=== PATIENT | female | born 1950 | race Caucasian/White ===

== ENCOUNTER 2022-04-20 14:12 | Outpatient (CLI) | payer MEDICARE, SELFPAY ==
--- NOTE | 2022-04-20 14:30 | CRLHL7_ITS ---
For Patients: As a result of the Century Cures Act, medical imaging exams and procedure reports are released immediately into your electronic medical record. You may view this report before your referring provider. If you have questions, please contact your health care provider. DXA BONE MINERAL DENSITY STUDY Reason for exam: History of breast cancer; aromatase inhibitors. Current height (in): 64. Weight (lb): 137. Menopause age: 54. Ethnicity: White. 1. Have you had a previous hip or vertebral fracture? No. 2. Have you had any fractures during your adult life which did not result from significant trauma (e.g., auto accident)? No. 3. Did either of your parents have a hip fracture? No. 4. Do you smoke? No. 5. Have you ever taken Glucocorticoids? No. 6. Do you have rheumatoid arthritis? No. 7. Do you have secondary osteoporosis? No. 8. Do you drink 3 or more alcoholic drinks per day? No. 9. Are you being treated for osteoporosis? No. 10. Have you ever taken any of the following medications: Actonel, Evista, Fosamax, Miacalcin, Reclast, Boniva, Forteo, HRT (i.e., estrogen/hormone therapy), Protelos, Prolia, Vitamin D, Calcium, other ??? please specify. ANSWER: Yes, vitamin D and calcium. 11. Do you have any of the following medical conditions: Anorexia or bulimia, asthma or emphysema, end stage renal disease, hyperparathyroidism, any seizure disorders, cancer, inflammatory bowel diseases, hysterectomy, other ??? please specify. ANSWER: Yes, cancer. 12. What was your maximum height (inches)? 66. 13. Do you perform weight bearing exercise regularly? No. 14. Do you regularly consume dairy products? Yes. 15. Do you drink caffeinated beverages? Yes. If female: 16. At what age did your period start? 12. 17. Are you premenopausal? No. 18. How many full-term pregnancies have you had? 3. 19. Have you ever missed your period for more than 6 months in a row (not including or menopause)? No. TECHNIQUE: Bone mineral density study was performed using the [employer]. FINDINGS: The results of the study expressed as bone mineral density (BMD) are as follows: Lumbar spine L1 to L4: BMD: 0.945 g/cm2. T-score: -0.9. Z-score: 1.3. Neck Left: BMD: 0.594 g/cm2. T-score: -2.3. Z-score: -0.3. Total Left: BMD: 0.808 g/cm2. T-score: -1.1. Z-score: 0.6. Radius Left 33%: BMD: 0.644 g/cm2. T-score: -0.8. Z-score: 1.5. IMPRESSION: 1. Osteopenia. 2. Scoliosis. FRAX 10-year Fracture Risk Major Osteoporotic Fracture: 14% Hip Fracture: 3.5% Reported Risk Factors: [place] () Neck BMD=0.594, BMI= 23.5 Sandy Henriquez M.D. Diagnostic/Breast Radiologist [email or web address] goode/Dictated by: Sandy Henriquez MD @ 04/20/2022 3:24:00 PM (Electronically Signed)
== END 2022-04-20 14:13 | disposition home or self-care (01) ==
LOC: RAD 14:13
PROVIDERS: PCP Family Medicine; Visit Provider Physician Assistant
DX: Z78.0 Asymptomatic menopausal state (principal); M85.89 Other specified disorders of bone density and structure, multiple sites; Z79.811 Long term (current) use of aromatase inhibitors
CPT/HCPCS: 77080

== ENCOUNTER 2022-08-23 14:00 | Outpatient (RCR) | payer MEDICARE, SELFPAY ==
--- NOTE | 2022-04-05 13:16 | ONC.NURNOTE ---
Accompanied patient to her oncology consultation. Patient aware that once we have the second oncotype dx score, I will review with Dr. Ortega and call her with results. Also discussed with Nanci the importance of completing her DEXA within the next few weeks as we will want those results prior to ordering endocrine therapy. Radiology will call patient to schedule. Patient was given a dental clearance form and encouraged to schedule an appointment at her earliest convenience. Patient informed that we will not schedule follow up here in oncology until we have a finalized treatment plan. If chemotherapy is not needed we will see her a few months after starting endocrine therapy. Patient was given my contact information and was encouraged to call with any questions or concerns.
--- NOTE | 2022-08-30 10:29 | URNOTE ---
Request received for authorization for Zoledronic Acid (J3489). Prior authorization is approved per [facility] (Ref# [id number]) as patient carries [employer] medicare, approval is for Zoledronic Acid from 09/19/2022 to 03/18/2023.
--- NOTE | 2022-08-31 14:06 | ONC.NURNOTE ---
Left message for patient stating that insurance will cover her infusion, but need dental clearance sent prior to scheduling.
== END 2022-10-02 23:59 | disposition home or self-care (01) ==
LOC: CCIC 14:00
PROVIDERS: PCP Physician Assistant Medical; Visit Provider Internal Medicine Hematology & Oncology
DX: C50.912 Malignant neoplasm of unspecified site of left female breast (principal); Z17.1 Estrogen receptor negative status [ER-]; Z79.811 Long term (current) use of aromatase inhibitors; Z85.3 Personal history of malignant neoplasm of breast
CPT/HCPCS: 99202; 99205; 99212; 99214

== ENCOUNTER 2022-09-17 14:00 | Outpatient (RCR) | payer MEDICARE, SELFPAY | END 2022-10-25 10:37 | disposition home or self-care (01) | PROVIDERS: PCP Family Medicine; Visit Provider Family Medicine | DX: M17.0 Bilateral primary osteoarthritis of knee (principal); M25.561 Pain in right knee; M25.562 Pain in left knee; Z51.89 Encounter for other specified aftercare | CPT/HCPCS: 97110; 97161; 97530 ==

== ENCOUNTER 2022-10-02 09:00 | Outpatient (RCR) | payer MEDICARE, SELFPAY ==
--- NOTE | 2022-04-12 13:32 | ONC.NURNOTE ---
Addendum entered by Trice Medina RN 04/26/22 17:18: Reviewed Dexa scan results with Reyna Kennedy PA-C and Mally Quintero EXPANDED FUNCTION DENTAL ASSISTANT; ok to proceed with Anastrazole 2 weeks after last Rad Tx appt, per Dr. Ortega's recommendation. Prescription sent to pharmacy on file. Reviewed with pt; last Rad Tx appt is tomorrow 04/27. Plan to start Anastrazole 05/11. Pt sees her dentist 05/01 and has Dental Clearance form to bring to appt. BNN to call ~ 1 mo after starting Anastrazole; reviewed pt to call with any questions/concerns about side effects or other issues. She is agreeable to this plan. Original Note: Reviewed with Dr. Ortega for Anastrazole to be ordered for pt, but to review DEXA results with Med Onc prior to pt starting Anastrazole. Reviewed this plan with pt; pharmacy confirmed.
== END 2023-01-30 23:59 | disposition home or self-care (01) ==
PROVIDERS: PCP Family Medicine; Visit Provider Physician Assistant
DX: I89.0 Lymphedema, not elsewhere classified (principal); Z98.890 Other specified postprocedural states; Z51.89 Encounter for other specified aftercare
CPT/HCPCS: 97140; 97165; 97535

== ENCOUNTER 2022-11-02 09:42 | Outpatient (CLI) | payer MEDICARE, SELFPAY ==
--- NOTE | 2022-11-02 10:00 | CRLHL7_ITS ---
For Patients: As a result of the Century Cures Act, medical imaging exams and procedure reports are released immediately into your electronic medical record. You may view this report before your referring provider. If you have questions, please contact your health care provider. Indication: Cough Technique: Noncontrast CT chest. Please note that all CT scans at this facility use dose modulation, iterative reconstruction, and/or weight-based dosing when appropriate to reduce radiation dose to as low as reasonably achievable. Comparison: CT PET 10/26/2008, CT chest 10/17/2007 Findings: Small subpleural nodular densities are present within the anterior left lung compatible with post treatment change. Left lower lobe pulmonary nodule is present measuring 4 millimeters, 3/57. Additional left lower lobe pulmonary nodule located posteriorly measuring 5.5 millimeters, 42. This nodule has increased in size from the prior study. Tiny nodular density in the superior segment of the left lower lobe is noted measuring 2 millimeters, 29. Small nodular densities in the medial left upper lobe are probably similar. Stable subpleural scarring at the posterior aspect of the right upper lobe. Less than 3 millimeter nodule in the periphery of the right upper lobe, 18. 6 millimeter nodule right lower lobe, new from prior, . No pleural effusion. Postop changes left breast lumpectomy and left axillary lymph node dissection. Remote postop changes to the right breast and right axilla. No enlarged mediastinal or hilar lymph nodes. No enlarged axillary lymph nodes. Hiatal hernia is present measuring 5.4 cm. Mild atherosclerotic changes. No fracture. No infiltrate, edema, effusion or pneumothorax. Impression: Small bilateral pulmonary nodules. Some of the nodules are chronic and unchanged. However, there is a new nodule within the right lower lobe measuring 6 millimeters and there is a larger nodule in the left lower lobe measuring 5.5 millimeters. No intrathoracic adenopathy. Postop changes to both breasts and axilla. No infiltrate, CHF or fibrosis. Please note that all CT scans at this facility use dose modulation, iterative reconstruction, and/or weight-based dosing when appropriate to reduce radiation dose to as low as reasonably achievable. Dictated by Ivna Olivas MD @ 11/02/2022 12:25:01 PM (Electronically Signed)
== END 2022-11-02 09:43 | disposition home or self-care (01) ==
LOC: CT 09:44
PROVIDERS: PCP Family Medicine; Visit Provider Physician Assistant
DX: R05.9 Cough, unspecified (principal); R91.8 Other nonspecific abnormal finding of lung field; R92.8 Other abnormal and inconclusive findings on diagnostic imaging of breast
CPT/HCPCS: 71250

== ENCOUNTER 2023-04-18 13:00 | Outpatient (RCR) | payer MEDICARE, SELFPAY ==
--- NOTE | 2022-10-19 15:21 | ONC.NURNOTE ---
Called pt to f/u recent Dental Clearance and check in about proceeding with Zometa as ordered q 6 mo. Pt discusses she has concerns about risk of osteonecrosis of jaw vs benefit of Zometa. Offered to schedule pt to see provider sooner than planned 6 mo f/u due in Feb 05. She prefers to wait to discuss more at this appt. When asked how she is feeling otherwise, she also notes bone aches and isn't sure if its more osteoarthritis or anastrozole-related myalgias. Library Clerk discussed possibility of trying other AI for an improved side effect profile. Pt reinforces she is managing adequately and would like to discuss at Jan appt.
== END 2023-08-06 23:59 | disposition home or self-care (01) ==
LOC: CCIC 13:00
PROVIDERS: PCP Family Medicine; Visit Provider Internal Medicine Hematology & Oncology
DX: C50.912 Malignant neoplasm of unspecified site of left female breast (principal); Z17.0 Estrogen receptor positive status [ER+]; R91.8 Other nonspecific abnormal finding of lung field; M85.80 Other specified disorders of bone density and structure, unspecified site; Z85.3 Personal history of malignant neoplasm of breast; Z79.811 Long term (current) use of aromatase inhibitors
CPT/HCPCS: 99212; 99214; 99215; G0463

== ENCOUNTER 2023-05-09 09:23 | Outpatient (CLI) | payer MEDICARE, SELFPAY ==
--- NOTE | 2023-05-09 10:00 | CT_ITS ---
Patient: PAYAL BURGOS Facility:?[facility] Patient ID:?[id number] Site Patient ID:?[id number]. Site :?[id number] Study:?CT-Chest W/ ISOVUE 370-05/09/2023 10:26:55 AM Ordering Physician:REYNA Final Report: Indication: MONITOR NEW AND CHANGING LUNG NODULES Technique: CT Chest W/ ISOVUE 370 Please note that all CT scans at this facility use dose modulation, iterative reconstruction, and/or weight-based dosing when appropriate to reduce radiation dose to as low as reasonably achievable. Comparison: 11/02/2022 Findings: Stable 5 millimeter nodule left lower lobe, 38. Stable 4 millimeter nodule left lower lobe, 354. Stable tiny subpleural density right upper lobe, 316 measuring less than 3 millimeters. Stable 6 millimeter nodule right lower lobe, 56. Decreased size of the lumpectomy cavity within the left lower lobe. Heterogeneous thyroid gland again noted. No adenopathy. No pleural or pericardial effusion. Hiatal hernia. Degenerative changes. No fracture. Impression: Stable bilateral pulmonary nodules. Please note that all CT scans at this facility use dose modulation, iterative reconstruction, and/or weight-based dosing when appropriate to reduce radiation dose to as low as reasonably achievable. Dictated by Ivan Olivas MD @ 05/09/2023 12:33:46 PM Signed by:?Ivan Olivas MD @05/09/2023 12:33:46 PM (Electronic Signature)
[2023-05-09 10:01] LABS: Creatinine* 0.9 mg/dL (0.5-1.5); Estimated Glomerular Filt Rate 68 ml/min
--- NOTE | 2023-05-20 15:30 | ONC.NURNOTE ---
Ct scan reviewed by Reyna Kennedy PA-C, noted lung nodules are stable. Rabbler called pt with results.
== END 2023-05-09 09:24 | disposition home or self-care (01) ==
LOC: CT 09:25
PROVIDERS: PCP Family Medicine; Visit Provider Physician Assistant
DX: R91.8 Other nonspecific abnormal finding of lung field (principal)
CPT/HCPCS: 36415; 71260; 82565; Q9967

== ENCOUNTER 2023-08-08 12:30 | Outpatient (RCR) | payer MEDICARE, SELFPAY | END 2024-02-04 23:59 | disposition home or self-care (01) | LOC: CCIC 12:30 | PROVIDERS: PCP Family Medicine; Visit Provider Internal Medicine Hematology & Oncology | DX: C50.912 Malignant neoplasm of unspecified site of left female breast (principal); Z17.0 Estrogen receptor positive status [ER+]; R91.8 Other nonspecific abnormal finding of lung field; M85.80 Other specified disorders of bone density and structure, unspecified site; Z85.3 Personal history of malignant neoplasm of breast; Z79.811 Long term (current) use of aromatase inhibitors | CPT/HCPCS: 99214; G0463 ==

== ENCOUNTER 2024-02-05 06:49 | Day surgery (SDC) | payer MEDICARE, SELFPAY ==
[2024-02-05] VITALS (21 sets, daily range): BP systolic 89–146; BP diastolic 62–92; PULSE 61–82; RESP 14–16; TEMP 36.2–36.8; O2SAT 95–100; BMI 24.2
--- OUTSIDE RECORDS SUMMARY | 2024-02-05 06:53 | XMS_ITS | Clinical Summary ---
Author Organization [facility] Address [address] [place] [address] Care Team Providers Care Hand Shoe Cutter Name Role Phone Unavailable Primary Care Provider Unavailabl e Source Comments Patient records contain information from all sites at [facility]. For routine questions regarding patient records, call [phone] during business hours, M-F 8:00 AM - 5:00 PM Central Time. Record requests for emergency care only can be directed to [phone] at any time.[facility] Allergies No known active allergies Medications acetaminophen (TYLENOL) 500 mg tablet Take 1,000 mg by mouth every 6 (six) hours as needed. 03/07/2022 Active atenoloL (TENORMIN) 50 mg tablet Take 50 mg by mouth daily. Active ibuprofen (ADVIL,MOTRIN) 400 mg tablet Take 400 mg by mouth every 8 (eight) hours as needed. 03/07/2022 Active levothyroxine (SYNTHROID, LEVOTHROID) 75 mcg tablet Take 75 mcg by mouth daily. 02/27/2022 Active Active Problems Problem Noted Date Diagnosed Date Malignant Neoplasm Of Breast Upper Outer Quadrant Female Right 03/16/2022 Malignant Neoplasm Of Overla pping Sites Of Left Female Breast 01/25/2022 Cancer Staging:Pathologic stage from 03/07/2022:Stage IA(pT1c, pN1a(sn), cM0, G2, ER+, [place]+, HER2-) - Unsigned Family History Medical History Relation Name Comments Colon cancer Brother Prostate cancer Brother Ovarian cancer Mother Relation Name Status Comments Brother Mother Social History Tobacco Use Types Packs/Day Years Used Date Smoking Tobacco: Never Passive Smoke Exposure: Past Smokeless Tobacco: Never Tobacco Cessation:Counseling Given: Not Answered Alcohol Use Standard Drinks/Week Comments Not Currently 2 (1 standard drink = 0.6 oz pur e alcohol) rare Nutrition Answer Date Recorded Nutrition: EVOO Fat Source Unknown 03/14 Nutrition: Servings of Fruits/Vegetables per Day Not on file 03/14/2022 Dental Answer Date Recorded Dental: Regular Dentist Unknown 03/14/19 23 Comments Unknown Sex and Gender Information Value Date Recorded Sex Assigned at Not on file Legal Sex Female 8:20 AM LIFE SCIENCES DIRECTOR Gender Identity Not on file Sexual Orientation Not on file Last Filed Vital Signs Vital Sign Reading Time Taken Comments Blood Pressure 189/97 04/24/2022 2:40 PM LIFE SCIENCES DIRECTOR Pulse 66 04/24/2022 2:40 PM LIFE SCIENCES DIRECTOR Temperature 36.3 C (97.4 F) 04/24/2022 2:40 PM LIFE SCIENCES DIRECTOR Respiratory Rate - - Oxygen Saturation - - Inhaled Oxygen Concentration - - Weight 61.5 kg (135 lb 9.3 oz) 04/24/2022 2:40 P M LIFE SCIENCES DIRECTOR Height - - Body Mass Index - - Plan of Treatment Health Maintenance Due Date Last Done Comments Bone Density Scan (Osteoporosis Screen) 1950 CT Colonography 1950 Colonoscopy 1950 Hepatitis C Screening 1950 Zoster Vaccines (1 of 2) 12/01/2010 10/06/2010 Depression Screening (Annual PHQ-2) 02/25/2023 Fall Risk Screen (Annual) 02/25/2023 COVID-19 Vaccine ( season) 2023 02/12/2023, 01/31/2021, 05/27/2020, Additional history exists Influenza Vaccine (#1) 2023 , 12/27/2021, 12/09/2020, Additional history exists Mammogram 01/25/2024 01/24/2023, 12/28, 03/07/2022, Additional history exists Thyroid Stimulating Hormone (TSH) test for thyroid function 08/14/2024 08/15/2023, 07/25/2022, 09/07/2021, Additional history exists Fasting Glucose for Diabetes Screening 08/14/2026 08/15/2023, 07/25/2022, 09/07/2021, Additional history exists Cologuard 08/27/2026 08/28/2023 Colorectal Cancer Surveillance 08/27/2026 DTaP,Tdap,and Td Vaccines (3 - Td or Tdap) 07/04/2030 07/04/2020, 07/22/2009, 11/21/1998 Pneumococcal vaccine (65+ years) Completed 11/07/2015, 10/26/2014 IPV Vaccines Aged Out No longer eligi ble based on patient's age to complete this topic Procedures Procedure Name Priority Date/Time Associated Diagnosis Comments OUTSIDE MG MAMMOGRAM Routine 03/07/2022 10:50 AM LIFE SCIENCES DIRECTOR from Last 3 Months or Most Recently Relevant to Health Maintenance Results * XR MAMMO POST LOCALIZATION LT-Outside Mammogram (03/07/2022 10:50 AM LIFE SCIENCES DIRECTOR) Narrative [facility] - 03/20/2022 8:11 AM LIFE SCIENCES DIRECTOR This order has been created and auto-finalized to support the import of outside images. If available, original interpretation can be found on the Media Tab in Chart Review, in Document Viewer, or as an image in QREADS. If a re-interpretation or overread is required please follow defined workflow. us Provider Not In System IMG BI PROCEDURES Final R esult [facility] NA from Last 3 Months or Most Recently Relevant to Health Maintenance Insurance [facility] [place] [address]
--- OUTSIDE RECORDS SUMMARY | 2024-02-05 06:53 | XMS_ITS | Referral Summary ---
Author Organization [facility] Address [address] [place] [address] Care Team Providers Care Livery Car Driver Name Role Phone Unavailable Primary Care Provider Unavailabl e Source Comments Patient records contain information from all sites at [facility]. For routine questions regarding patient records, call [phone] during business hours, M-F 8:00 AM - 5:00 PM Central Time. Record requests for emergency care only can be directed to [phone] at any time.[facility] Allergies No known active allergies Medications acetaminophen [...] from 03/07/2022:Stage IA(pT1c, pN1a(sn), cM0, G2, ER+, [place]+, HER2-) - Unsigned Social History Tobacco Use Types Packs/Day Years [...] on file Legal Sex Female 8:20 AM PROGRAMMER DEVELOPER Gender Identity Not on file Sexual Orientation Not on file Last Filed Vital Signs Vital Sign Reading Time Taken Comments Blood Pressure 189/97 04/24/2022 2:40 PM PROGRAMMER DEVELOPER Pulse 66 04/24/2022 2:40 PM PROGRAMMER DEVELOPER Temperature 36.3 C (97.4 F) 04/24/2022 2:40 PM PROGRAMMER DEVELOPER Respiratory Rate - - Oxygen Saturation - - Inhaled Oxygen Concentration - - Weight 61.5 kg (135 lb 9.3 oz) 04/24/2022 2:40 P M PROGRAMMER DEVELOPER Height - - Body Mass Index - - Plan of Treatment Not on file Procedures Procedure Name Priority Date/Time Associated Diagnosis Comments OUTSIDE MG MAMMOGRAM Routine 03/07/2022 10:50 AM PROGRAMMER DEVELOPER from Last 3 Months or Most Recently Relevant to Health Maintenance Results * XR MAMMO POST LOCALIZATION LT-Outside Mammogram (03/07/2022 10:50 AM PROGRAMMER DEVELOPER) Narrative [facility] - 03/20/2022 8:11 AM PROGRAMMER DEVELOPER This order has been created and auto-finalized [...] Most Recently Relevant to Health Maintenance Insurance [facility]
--- OUTSIDE RECORDS SUMMARY | 2024-02-05 06:54 | XMS_ITS ---
Author Organization [facility] Address [address] [place] [address] Care Team Providers Care Film Color Tester Name Role Phone Unavailable Unavailable Unavailable Surgery Details Not on file Complications Check Surgery Details section. Procedure Estimated Blood Loss Check Surgery Details section. Procedure Findings Check Surgery Details section. Procedure Specimens Taken Check Surgery Details section.
--- OUTSIDE RECORDS SUMMARY | 2024-02-05 06:54 | XMS_ITS | Clinical Summary ---
Author Organization [employer] [facility] Address [place], [place] [address] Care Team Providers Care Master Baker Name Role Phone Gretchen Farias MD Primary Care Provider Juliana Mcknight MD Unavailable Unavailable Allergies No known active allergies Medications CALCIUM + D ORAL once daily Active MULTIVITAMIN TAB take 1 tablet by oral route once daily with food Active acetaminophen (TYLENOL EXTRA STRGTH) 500 mg tablet Take 2 Tablets (1,000 mg) by mouth every 6 hours if needed for Pain (For mild pain 1st choice. May take either Tylenol tablet or liquid, if both ordered.). Max acetaminophen dose: 4000mg in 24 hrs. 3 Active ibuprofen (ADVIL; MOTRIN) 400 mg tablet Take 1 Tablet (400 mg) by mouth every 8 hours if needed for Pain (For mild pain 2nd choice). 3 Active anastrozole (ARIMIDEX) 1 mg tablet TAKE 1 TABLET BY MOUTH DAILY. START DIRECTED AFTER RADIATION AND BONE SCAN RESULTS. 3 Active levothyroxine (SYNTHROID) 75 mcg tabletIndicatio ns:Hypothyroidi sm, unspecified type Take 1 Tablet (75 mcg) by mouth once daily. 100 Tablet 3 4 Active losartan (COZAAR) 50 mg tabletIndicatio ns:HTN (hypertension) Take 1 Tablet (50 mg) by mouth once daily. 100 Tablet 3 4 Active Active Problems Problem Noted Date Diagnosed Date History of infiltrating ductal carcinoma of agapito st 07/25/2022 Overview (07/25/2022): Right. 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 2nd was less effective in 09/2018 and 3rd had not effect at all in 08/2019. Oct 2021: bilateral knee cortisone injections, Dr. Dinero July 2022: repeat bilateral knee cortisone injections, Dr. Dinero Osteopenia 11/02/2014 Overview (11/02/2014): Repeat 3-5 years done in 10/2014 Glaucoma suspect of both eyes 11/29/2011 Family history of colonic polyps 08/31/2008 Overview (11/11/2014): Colonoscopy 08/2008 normal repeat in 5 years Colonoscopy 10/2014 normal repeat in 5 years Hypothyroidism 07/28/2008 Unspecified essential hypertension 06/24/2007 Encounters Date Type Department Care Team Description 01/29/2024 2:30 PM INVESTIGATIVE RESEARCH SPECIALIST Office Visit [facility] [place] [address] [address] Delfina Bernal PA Follow Up (History of breast cancer ) 01/29/2024 1:20 PM INVESTIGATIVE RESEARCH SPECIALIST - 01/29/2024 11:59 PM INVESTIGATIVE RESEARCH SPECIALIST Hospital Encounter [facility] [place] [address] [place] [address] Encounter for screening mammogram for malignant neoplasm of breast; Personal history of malignant neoplasm of breast 01/29/2024 Travel 01/21/2024 12:15 PM INVESTIGATIVE RESEARCH SPECIALIST Nurse/Clinic Staff Only [place] [address] [place] [address] Immunization/Injectio n 01/21/2024 11:20 AM INVESTIGATIVE RESEARCH SPECIALIST Nurse/Clinic Staff Only [place] [address] [place] [address] Blood Pressure 01/21/[address] [place] [address] [place] [address] Alonzo Dinero MD 01/20/2024 Travel 01/20/2024 Orders Only [address] [place] [address] Alonzo Dinero MD 1 scan: (1-Ord) NFLD-EKG-01/17/24 01/17/2024 10:45 AM INVESTIGATIVE RESEARCH SPECIALIST Preop Visit [place] [address] [place] [address] Alonzo Dinero MD Preoperative Exam (RIGHT Total Knee Replacement DOS: 02/05/2024/[facility]/Dr Willard ) 01/16/2024 Travel from Last 3 Months Immunizations Name Administration Dates Next Due COVID-19 VACCINE SPIKEVAX (M ODERNA 50MCG/0.5ML) 12YO+ PFS 01/21/2024 COVID-19 vaccine (Moderna 10 0mcg/0.5mL) PF, MDV 01/31/2021,05/27/2020,04/29/2020 Influenza Virus, Unspecified 11/25/2012 Influenza, High-dose Inactivated 12/25/2018,10/26 Influenza, High-dose Quadriv alent Inactivated 12/05/2022,12/27/2021,12/28/2019 Influenza, IIV3 (Age >=3 years) 12/23/2009 Influenza, IIV4 11/03/2013 Influenza, Inactivated AIIV4 (Age 65+ Years) Preserv Free 12/09/2020 Influenza, Inactivated IIV3 (Age 65+ Years) Preserv Free 01/21/2024,01/02/2018,01/01/2017 Pneumococcal Poly,23-Valent (Pneumovax) 11/07/19 16 Pneumococcal conj 13-Valent (Prevnar 13) 015 Td (Age >=7 Years) 11/21/1998,10/03/1989 Tdap 07/04/2020,07/22/2009 Zoster (Zostavax-ZVL, live) 10/06/2010 Family History Medical History Relation Name Comments Cancer-colon Brother Hypertension Brother Other Brother hyperparathyroi d s/p surgical correction Arthritis Father RA Heart attack Father Hypertension Father Kidney failure Father Other Father hyperparathyroi dism s/p surgical correction Lymphoma Maternal Aunt Heart Disease Maternal Grandmother Fatal [place] at age 69 or 70 Cancer-ovarian Mother dx age 90 Hypertension Mother Lung cancer Other paternal first cousin; diagnosed late 50s; non smoker Arthritis Paternal Aunt RA Stroke Paternal Grandfather in 80's Arthritis Paternal Uncle RA Hypertension Sister Thyroid Disease Sister Cancer No Family History Cancer-breast No Family History Cancer-prostate No Family History Relation Name Status Comments Brother Alive Father Maternal Aunt Maternal Grandmother Mother Other Paternal Aunt Paternal Grandfather Paternal Uncle Sister Alive Social History Tobacco Use Types Packs/Day Years Used Date Smoking Tobacco: Never Smokeless Tobacco: Never Tobacco Cessation:Counseling Given: Yes Comments:lived with 2nd hand smoke Alcohol Use Standard Drinks/Week Comments Yes 2 (1 standard drink = 0.6 oz pur e alcohol) occasional - rare PHQ-2 Answer Date Recorded PHQ-2 TOTAL SCORE 0 08/15/2023 Social Connections Answer Date Recorded Do you often feel lonely or isolated from those around you? 0 08/15/2023 Financial Resource Strain Answer Date R ecorded Difficulty of Paying Living Expenses 3 08/15/2023 Difficulty of Paying Living Expenses Not on file 08/15/2023 Food Insecurity Answer Date Recorded Do you worry your food will run out before you are able to buy more? 1 08/15/2023 Transportation Needs Answer Date Record ed Does lack of transportation keep you from medica l appointments? 1 08/15/2023 Does lack of transportation keep you from work, meetings or getting things that you need? 1 08/15/2023 Housing Stability Answer Date Recorded What is your housing situation today? 1 08/15/2023 Comments No Sex and Gender Information Value Date Recorded Sex Assigned at Not on file Legal Sex Female 5:25 AM INVESTIGATIVE RESEARCH SPECIALIST Gender Identity Not on file Sexual Orientation Not on file Obstetrics History Para Term AB IAB SAB Ectopic Multiple Livin g Live Births 3 3 3 Date Outcome GA Total Labor Labor/2nd/3rd Weight Sex Type Anes PTL Mnady A1 A5 Name Clin Para Para Para Last Filed Vital Signs Vital Sign Reading Time Taken Comments Blood Pressure 168/98 01/29/2024 1:52 PM INVESTIGATIVE RESEARCH SPECIALIST Pulse 87 01/29/2024 1:52 PM INVESTIGATIVE RESEARCH SPECIALIST Temperature 36.3 C (97.3 F) 01/29/2024 1:52 PM INVESTIGATIVE RESEARCH SPECIALIST Respiratory Rate 18 01/29/2024 1:52 PM INVESTIGATIVE RESEARCH SPECIALIST Oxygen Saturation 100% 01/21/2024 11:32 AM INVESTIGATIVE RESEARCH SPECIALIST Inhaled Oxygen Concentration - - Weight 62.6 kg (138 lb) 01/29/2024 1:52 PM INVESTIGATIVE RESEARCH SPECIALIST Height 160 cm (5' 3) 01/29/2024 1:52 PM INVESTIGATIVE RESEARCH SPECIALIST Body Mass Index 24.45 01/29/2024 1:52 PM INVESTIGATIVE RESEARCH SPECIALIST Plan of Treatment Health Maintenance Due Date Last Done Comments RSV vaccine for adults or (1 - Risk 60-74 years 1-dose series) 2009 Zoster (shingles) series for age 50+ (1 of 2) 12/01/2010 10/06/2010 Medicare Wellness for age 65+ 01/03/2019, 11/07/2015, 10/26/2014 Colonoscopy through age 75 11/12/201911/11, 11/11/2014, 08/31/2008 COVID-19 vaccine series ( season) 2024 01/21/2024, 02/12/2023, 01/31/2021, Additional history exists Depression screening for age 12+ 08/14/2024 08/15/2023, 07/25/2022, 12/09/2020, Additional history exists BMI (ht and wt on same day) for age 18+ 01/28/2025 01/29/2024, 01/17/2024, 01/24/2023, Additional history exists Mammogram for age 45-75 01/28/2025 01/29/20 24, 01/24/2023, 01/16/2022, Additional history exists Fecal testing sDNA-FIT ([place] guard) for age 45-75 08/21/2026 08/22/2023 Lipids for age 45-75 07/26/2027 07/25/2022, 09/07/2021, 12/09/2020, Additional history exists Tetanus booster 07/04/2030 07/04/2020, 06/26, 11/21/1998, Additional history exists Hepatitis C screening for ag e 18-79 Completed 11/07/2015 Pneumococcal series for age 65+ Completed 6, 10/26/2014 Tdap Completed 07/04/2020, 07/22/2009 DEXA/DXA scan for age 65+ Completed 04/20/2022, 02/2014 Influenza for age 65+ Completed 01/21/2024 , 12/05/2022, 12/27/2021, Additional history exists Procedures Procedure Name Priority Date/Time Associated Diagnosis Comments XR MAMMO NATHALIE BILAT SCREEN Routine 01/29/2024 1:40 PM INVESTIGATIVE RESEARCH SPECIALIST Encounter for screening mammogram for malignant neoplasm of breast Personal history of malignant neoplasm of breast EKG 12 LEAD Routine 01/20/2024 8:36 AM INVESTIGATIVE RESEARCH SPECIALIST Pre-op examination SC READING EKG - NO CHARGE, COMP ONLY Routine 01/20/2024 8:35 AM INVESTIGATIVE RESEARCH SPECIALIST Pre-op examination POTASSIUM Routine 01/17/2024 11:51 AM INVESTIGATIVE RESEARCH SPECIALIST Pre-op examination HEMOGLOBIN Routine 01/17/2024 11:51 AM INVESTIGATIVE RESEARCH SPECIALIST Pre-op examination SDNA-FIT EXTERNAL (COLOGUARD) Routine 08/22/2023 9:15 AM CDT Screening for colon cancer LIPID PANEL Routine 07/25/2022 2:20 PM CDT Lipid screening XR DXA BONE DENSITY 2 SITES AXIAL Routine 04/20/2022 12:00 AM INVESTIGATIVE RESEARCH SPECIALIST Osteopenia, unspecified location Asymptomatic menopausal state ANTI HCV Routine 11/07/2015 9:04 AM CDT Need for hepatitis C screening test from Last 3 Months or Most Recently Relevant to Health Maintenance Results * XR MAMMO NATHALIE BILAT SCREEN (01/29/2024 1:40 PM INVESTIGATIVE RESEARCH SPECIALIST) Anatomical Region Laterality Modality BREASTS, Breast Left, Breast Right Bilateral Mammography Impressions 01/29/2024 2:37 PM INVESTIGATIVE RESEARCH SPECIALIST There is no radiographic evidence for malignancy. Recommend annual mammograms. MAMMOGRAM ASSESSMENT: ACR 2 Benign PATIENTS: You will also receive a letter with your examination results in an easy to read format. If you have questions about your results, please contact your referring provider. Narrative 01/29/2024 2:37 PM INVESTIGATIVE RESEARCH SPECIALIST For Patients: As a result of the Century Cures Act, medical imaging exams and procedure reports are released immediately into your electronic medical record. You may view this report before your referring provider. If you have questions, please contact your health care provider. XR MAMMO NATHALIE BILAT SCREEN [[id number]] CLINICAL HISTORY: This is an asymptomatic 73 y.o. patient. INDICATION FOR EXAM: Mammogram Screening. TECHNIQUE: CC & MLO views were obtained. This study was evaluated with the assistance of Computer-Aided Detection. Breast Tomosynthesis was used in interpretation. COMPARISON FILMS: Yes 01/24/23 [facility] 01/09/22 [facility] FINDINGS: There are scattered areas of fibroglandular density. No suspicious masses or microcalcifications. There are post treatment changes of both breasts. Gretchen Farias MD MAMMO Final Resul t * EKG 12 LEAD (01/20/2024 8:36 AM INVESTIGATIVE RESEARCH SPECIALIST) us Alonzo Dinero MD EKG ORD Final Res ult * SC READING EKG - NO CHARGE, COMP ONLY (01/20/2024 8:35 AM INVESTIGATIVE RESEARCH SPECIALIST) us Alonzo Dinero MD PB - PROVIDER READINGS Fi nal Result * HEMOGLOBIN (01/17/2024 11:51 AM INVESTIGATIVE RESEARCH SPECIALIST) HEMOGLOBIN 13.9 11.7 - 15.5 g/dL [facility] Blood BLOOD SPECIMEN / Unknown 01/17/2024 11:51 AM INVESTIGATIVE RESEARCH SPECIALIST 01/17/2024 11:52 AM INVESTIGATIVE RESEARCH SPECIALIST Alonzo Dinero MD HEMATOLOGY Final Res ult [facility] [address] [place] [address], [facility] [address] [place] [address] * POTASSIUM (01/17/2024 11:51 AM INVESTIGATIVE RESEARCH SPECIALIST) Pathologist [facility] POTASSIUM 4.4 3.5 - 5.3 mmol/L [facility] Blood BLOOD SPECIMEN / Unknown 01/17/2024 11:51 AM INVESTIGATIVE RESEARCH SPECIALIST 01/17/2024 11:52 AM INVESTIGATIVE RESEARCH SPECIALIST Alonzo Dinero MD CHEMISTRY Final Res ult Performing Organization Address City/[facility]/ZIP Co de Phone Number [employer] [place] [address] [place] [address], [facility] [address] [place] [address] * SDNA-FIT EXTERNAL (COLOGUARD) (08/22/2023 9:15 AM CDT) Pathologist [facility] NONINV COLON CA DNA+OCC BLD SCRN STL-IMP Negative Negative 08/28/2023 12:30 PM CDT [facility] (CLIA #:[id number]) Comment: NEGATIVE TEST RESULT. A negative Cologuard result indicates a low likelihood that a colorectal cancer (CRC) or advanced adenoma (adenomatous polyps with more advanced pre-malignant features) is present. The chance that a person with a negative Cologuard test has a colorectal cancer is less than 1 in 1500 (negative predictive value >99.9%) or has an advanced adenoma is less than 5.3% (negative predictive value 94.7%). These data are based on a prospective cross-sectional study of 10,000 individuals at average risk for colorectal cancer who were screened with both Cologuard and colonoscopy. (Alvin Walker al, N Engl J Med 2014;370(14):0321-6963) The normal value (reference range) for this assay is negative. COLOGUARD RE-SCREENING RECOMMENDATION: Periodic colorectal cancer screening is an important part of preventive healthcare for asymptomatic individuals at average risk for colorectal cancer. Following a negative Cologuard result, the [place] Cancer Society and U.S. Multi-Society Task Force screening guidelines recommend a Cologuard re-screening interval of 3 years. References: [place] [employer] Guideline for Colorectal Cancer Screening: https://www.cancer.org/cancer/rxnej-cirvww-togcgo/pjmlehfim-gooyudebi-eunmvyd/ac s-rec ommendations.html.; Linus DK, Fransisco BROWN, Orlin EstradaK, Colorectal Cancer Screening: Recommendations for Physicians and Patients from the U.S. Multi-Society Task Force on Colorectal Cancer Screening , Am J Gastroenterology 2017; 112:8830-9766. TEST DESCRIPTION: Composite algorithmic analysis of stool DNA-biomarkers with hemoglobin immunoassay. Quantitative values of individual biomarkers are not reportable and are not associated with individual biomarker result reference ranges. Cologuard is intended for colorectal cancer screening of adults of either sex, 45 years or older, who are at average-risk for colorectal cancer (CRC). Cologuard has been approved for use by the U.S. FDA. The performance of Cologuard was established in a cross sectional study of average-risk adults aged 50-84. Cologuard performance in patients ages 45 to 49 years was estimated by sub-group analysis of near-age groups. Colonoscopies performed for a positive result may find as the most clinically significant lesion: colorectal cancer [4.0%], advanced adenoma (including sessile serrated polyps greater than or equal to 1cm diameter) [20%] or non- advanced adenoma [31%]; or no colorectal neoplasia [45%]. These estimates are derived from a prospective cross-sectional screening study of 10,000 individuals at average risk for colorectal cancer who were screened with both Cologuard and colonoscopy. (Alvin Ribeiro, N Engl J Med 2014;370(14):7138-9659.) Cologuard may produce a false negative or false positive result (no colorectal cancer or precancerous polyp present at colonoscopy follow up). A negative Cologuard test result does not guarantee the absence of CRC or advanced adenoma (pre-cancer). The current Cologuard screening interval is every 3 years. ([place] Cancer Society and U.S. Multi-Society Task Force). Cologuard performance data in a 10,000 patient pivotal study using colonoscopy as the reference method can be accessed at the following location: www.[employer]/results. Additional description of the Cologuard test process, warnings and precautions can be found at www.[employer].com. Stool specimen (specimen) (Rectum) 08/22/2023 9:15 AM CDT 08/23/2023 9:54 AM CDT us Gretchen Farias MD URINE Final Resul t [facility] (CLIA #:[id number]) [place] [address], * LIPID PANEL (07/25/2022 2:20 PM CDT) CHOLESTEROL,TOTAL 186 100 - 199 mg/dL 07/26/2022 1:36 AM CDT [facility] Comment: Cholesterol, Total Reference Ranges Desirable <200 mg/dL Borderline 200-239 mg/dL High >=240 mg/dL TRIGLYCERIDES 87 <150 mg/dL 07/26/2022 1:36 AM CDT [facility] HDL CHOLESTEROL 84 >40 mg/dL 1:36 AM CDT [facility] NON-HDL CHOLESTEROL 102 <145 mg/dl 07/26/2022 1:36 AM CDT [facility] CHOL/HDL RATIO 2.21 <4.50 07/26/2022 1:36 AM CDT [facility] LDL CHOLESTEROL 85 <=130 mg/dL 07/26/2022 1:36 AM CDT [facility] VLDL CHOLESTEROL 17 <=30 mg/dL 07/26/2022 1:36 AM CDT [facility] PROVIDER ORDERED STATUS RANDOM 07/26/2022 1:36 AM CDT [facility] Blood BLOOD SPECIMEN / Unknown Venipuncture / Unknown 07/25/2022 2:20 PM CDT 07/25/2022 2:23 PM CDT Gretchen Farias MD CHEMISTRY Final Resul t [facility] [address] [place] [address], [place] * XR DXA BONE DENSITY 2 SITES AXIAL (04/20/2022 12:00 AM INVESTIGATIVE RESEARCH SPECIALIST) Anatomical Region Laterality Modality Spine, HIPS, HIPL, HIPR Other Gretchen Farias MD DEXA Final Resul t * ANTI HCV [18654.2] (11/07/2015 9:04 AM CDT) HEPATITIS C ANTIBODY Non-Reacti ve Non-Reacti ve 11/07/2015 6:01 PM CDT [facility] Blood BLOOD SPECIMEN / Unknown Venipuncture / Unknown 11/07/2015 9:04 AM CDT 11/07/2015 9:04 AM CDT Narrative [facility] - 11/07/2015 6:01 PM CDT Antibodies to HCV not detected; does not exclude the possibility of exposure to HCV. Aleksandra Sosa MD SEND OUTS Fi nal Result [facility] [address] [place] [address], [place] from Last 3 Months or Most Recently Relevant to Health Maintenance Insurance MEDICARE PART A HB ONLY BLUE CROSS MEDICARE ADVANTAGE MR Advance Directives * Full Code (Latest Code Status on File) Date Activated Date Inactivated Comments 03/07/2022 11:01 AM 03/07/2022 8:25 PM Question Answer Comments Code Status Discussion: Unable to Assess Preferences, Provider to review later Care Teams Master Baker Relationship Specialty Start Date End Date Gretchen Farias MD [address] [place] [address] PCP - General Family Practice 10/11/21 Juliana Mcknight MD [address] [place] [address] Surgery - General 01/24/22
--- OUTSIDE RECORDS SUMMARY | 2024-02-05 06:54 | XMS_ITS ---
Author Organization [facility] Address [address] [place] [address] Care Team Providers Care Customs Broker Name Role Phone Unavailable Primary Care Provider Unavailabl e Active Problems Problem Noted Date Diagnosed Date Malignant Neoplasm Of Breast Upper Outer Quadrant Female Right 03/16/2022 Malignant Neoplasm Of Overla pping Sites Of Left Female Breast 01/25/2022 Cancer Staging:Pathologic stage from 03/07/2022:Stage IA(pT1c, pN1a(sn), cM0, G2, ER+, ID+, HER2-) - Unsigned Current Oncology Plans No current plan information found. Past Plans No past plan information found. Radiation Treatments * Plan Last Treated On Elapsed Days Fractions Treated Prescribed Fraction Dose Prescribed Total Dose [id number] 04/27/2022 4 5 of 5 520 cGy 2,600 cGy Reference Point Last Treated On Elapsed Days Session Dose Total Dose [id number] 04/27/2022 4 520 cGy 2,600 cGy
--- NOTE | 2024-02-05 07:31 | W.PM.H&PU ---
History & Physical Update History & Physical Update H&P Reviewed and patient assessed: No changes noted
[2024-02-05] MEDS: ACETAMINOPHEN 500 MG TABLET 1000 MG PO (08:00)
[2024-02-05] MEDS: OXYCODONE (CR) 10 MG TAB.ER.12H PO (08:00)
[2024-02-05] MEDS: SODIUM CHLORIDE 0.9 % (FLUSH) 10 ML SYRINGE IVF (08:38)
[2024-02-05] MEDS: MIDAZOLAM HCL 1 MG/ML inj IVP (08:38)
[2024-02-05] MEDS: LACTATED RINGERS 1000 ML 1,000 ML 100 ML IV (08:38)
[2024-02-05] MEDS: fentaNYL 100 MCG/2 ML inj IVP (08:40)
--- NOTE | 2024-02-05 08:41 | SUR.PREOP ---
TIME?OUT:?0839 PT/RN/MDA?VERIFICATION?OF?SURGICAL?SITE,?PROCEDURE,?AND?CONSENT OBTAINED?PRIOR?TO?INVASIVE?PROCEDURE.
[2024-02-05] MEDS: TRANEXAMIC ACID 100 MG/ML INJ 1000 MG IV (09:05)
[2024-02-05] MEDS: CEFAZOLIN 2 GM in 0.9 % SODIUM CHLORIDE Mini-bag 100 ML IVPB (09:05)
--- NOTE | 2024-02-05 09:17 | CRLHL7_ITS ---
For Patients: As a result of the Cures Act, medical imaging exams and procedure reports are released immediately into your electronic medical record. You may view this report before your referring provider. If you have questions, please contact your health care provider. Indication: Total knee replacement Technique: Two views left knee Findings/Impression: Hardware from a left total knee arthroplasty is in satisfactory position. Bone alignment is normal. No sign of acute fracture. Postop changes are within normal limits. Dictated by Ivan Olivas MD @ 02/05/2024 11:29:37 AM (Electronically Signed)
--- NOTE | 2024-02-05 09:54 | W.ANESCHARGE ---
Anesthesia Charges Start Date/Time Anesthesia Start Date: 02/05/24 Stop Date/Time Anesthesia Stop Date: 02/05/24 Summary Extremes of Age - Over 70 or under 1: MDA
--- NOTE | 2024-02-05 10:49 | P.ORPRC_ITS ---
Procedure Note Date of procedure: 02/05/24 Procedure: PREOPERATIVE DIAGNOSIS: 1. Left knee osteoarthritis, primary, severe POSTOPERATIVE DIAGNOSIS: 1. Left knee osteoarthritis, primary, severe PROCEDURE: 1. Left total knee arthroplasty - subvastus SURGEON: Eriberto Willard MD. WATER RESOURCE SPECIALIST: ALCON Mai - Of note, a skilled patient clerical assistant was critical for this case to aid in patient positioning, tissue retraction, limb manipulation/positioning, and closure. ANESTHESIA: Spinal anesthetic EBL: 50ml IMPLANTS: DePuy J&J all cemented TKA - Attune PS femur size 4 Size 4 tibia 6 mm poly spacer 38 mm patella TOURNIQUET: 80 minutes at 250 torr COMPLICATIONS: None evident INDICATIONS: The patient is a pleasant 73-year-old female who has experienced severe left knee pain and difficulty bearing weight. Workup included x-rays which revealed severe osteoarthrosis in the knee. Given the deformity, the dysfunction, and the pain, as well as the failure of nonoperative management, recommendation was made for surgery. FINDINGS: Full-thickness chondral loss diffusely throughout the medial and lateral compartments the and to a lesser degree patellofemoral compartment. Degenerative meniscus pathology both medial and laterally. Large effusion upon entering the joint. DESCRIPTION OF PROCEDURE: Following a thorough discussion of risks, benefits, and alternatives consent was obtained and the left knee was marked. The patient was brought to the operating room and placed supine on the operating table. Induction of anesthesia was undertaken. 1 g IV Ancef and 1 g tranexamic acid was administered within 1 hr of incision preoperatively. Proper time-out was performed identifying proper patient, site, procedure. The operative extremity was prepped and draped in the appropriate sterile fashion using ChloraPrep after the patient was positioned supine with all bony prominences well padded. A longitudinal, anterior, midline skin incision was made starting approximately 3cm proximal to the superior pole of the patella and advanced distal to the tibial tubercle. A subvastus approach was utilized. A medial subperiosteal sleeve was created with knife, mendoza elevator and curved osteotome. The retropatellar fatpad was resected and the synovium in the suprapatellar pouch excised to visualize the anterior femoral cortex. Femoral preparation was performed via an intramedullary guide. Step drill allo wed access into the femoral canal. The distal cutting guide was placed with 5? of valgus and 10 mm cut on the distal femur. Femur was sized using a posterior referencing guide in 3? of external rotation. This found have a best fit with the sizing noted above. The 4 in 1 cutting block was then placed, and the distal femur shaped accordingly. The box cut was then created and the trial implant inserted to confirm appropriate fit. We turned our attention to the proximal tibia. Extramedullary guide was utilized for cutting with the goal of being 90 degree cut from the mechanical axis of the tibia in the varus/valgus plane utilizing tibial crest as the primary alignment. Initially a 2 mm resection was performed from the medial tibial plateau. Ultimately, balancing was achieved in both flexion and extension in both varus and valgus. The knee was able to achieve full extension as well comfortably. The patella was initially measured and found have a thickness of 25 mm. It was resected back to approximately 15 mm. It was sized to be a best fit with as noted above. This was drilled, trial placed. All trials were placed and found to have an excellent stability and balance. At this stage, trial implants were removed, the knee was thoroughly irrigated with normal saline, and the cement was mixed. After irrigation, the knee was thoroughly dried, and cement placed, with the real tibial and femoral implants placed along with the patella. Trial poly spacer was placed and confirmed to have excellent range of motion and full extension, and the real poly spacer opened and inserted. All extra cement was removed, and a 3 min Betadine soak performed. Finally, a final irrigation round with normal saline was performed. Closure performed with 0 PDS and #0 Stratafix for the quad tendon/retinaculum. 2-0 Vicryl/Stratafix for the subcutaneous and 4-0 Monocryl for subcuticular closure. Dressings were applied and the patient was awoken from anesthesia after the tourniquet deflated and transferred the PACU in stable condition. A skilled patient clerical assistant was critical for this case to aid in patient positioning, tissue retraction, bone exposure, limb manipulation/positioning, patient safety, and closure. PLAN: 1. Weight bear as tolerated operative extremity. 2. 23 hr perioperative antibiotics. 3. Ice. 4. PT/OT consults for ambulation assistance/mobility education. 5. Social work consult for discharge planning. 6. DVT prophylaxis with at SCDs and aspirin twice daily.
--- NOTE | 2024-02-05 10:58 | W.ANESCHARGE ---
Anesthesia Charges Start Date/Time Anesthesia Start Date: 02/05/24 Anesthesia Start Time: 09:00 Stop Date/Time Anesthesia Stop Date: 02/05/24 Anesthesia Stop Time: 10:55
--- NOTE | 2024-02-05 11:00 | P.NB_ITS ---
Nerve Block Nerve Block Time Seen by Provider: 08:40 Date Seen: 02/05/24 Type of block requested by surgeon for post-operative analgesia: adductor canal Side: left Time out performed: Yes Verification of patient name: Yes Verification of date of : Yes Site marking: site marked Name of person performing procedure: Erlin Kathy Continuous monitoring Was continuous monitoring of O2 sat, B/P, bus driver/monitor, recorded every 15 minutes?: Yes Procedure Checklist: sterile prep, needles and gloves Ultrasound guided. Images saved: Yes Medications given in 5ml increments after negative aspiration: Ropivicaine %: 0.5 mL: 30 Needle gauge: 20 Decadron (mg): 10 Precedex (mcg): 25 Patient tolerated procedure well: Yes Additional comments: Injected in 5mL increments after negative aspiration Block Charges Block Charge (with Pro Fee): Femoral Nerve Use of Ultrasound Machine for Block: Yes- US Guidance/pain block
--- NOTE | 2024-02-05 11:00 | W.ANESCHARGE ---
Anesthesia Charges Start Date/Time Anesthesia Start Date: 02/05/24 Anesthesia Start Time: 09:00 Stop Date/Time Anesthesia Stop Date: 02/05/24 Anesthesia Stop Time: 10:55 Summary Extremes of Age - Over 70 or under 1: MDA
--- NOTE | 2024-02-05 11:01 | P.NB_ITS ---
Nerve Block Nerve Block Time Seen by Provider: 08:42 Date Seen: 02/05/24 Type of block requested by surgeon for post-operative analgesia: adductor canal Side: left Time out performed: Yes Verification of patient name: Yes Verification of date of : Yes Site marking: site marked Name of person performing procedure: Kasal Continuous monitoring Was continuous monitoring of O2 sat, B/P, engineering recruiter, recorded every 15 minutes?: Yes Procedure Checklist: sterile prep, needles and gloves Ultrasound guided. Images saved: Yes Medications given in 5ml increments after negative aspiration: Marcaine %: 0.25 mL: 15 Needle gauge: 20 Precedex (mcg): 25 Patient tolerated procedure well: Yes Block Charges Block Charge (with Pro Fee): Femoral Nerve Use of Ultrasound Machine for Block: Yes- US Guidance/pain block
--- NOTE | 2024-02-05 11:01 | W.PM.NB ---
Nerve Block Nerve Block Time Seen by Provider: 08:40 Date Seen: 02/05/24 Type of block requested by surgeon for post-operative analgesia: geniculars Side: left Time out performed: Yes Verification of patient name: Yes Verification of date of : Yes Site marking: site marked Name of person performing procedure: Erlin Dohertygavino Continuous monitoring Was continuous monitoring of O2 sat, B/P, teacher associate, recorded every 15 minutes?: Yes Procedure Checklist: sterile prep, needles and gloves Ultrasound guided. Images saved: Yes Medications given in 5ml increments after negative aspiration: Ropivicaine %: 0.5 mL: 12 Needle gauge: 25 Patient tolerated procedure well: Yes Additional comments: Injected in 4mL increments after negative aspirations Block Charges Block Charge (with Pro Fee): Genicular Nerve Block Use of Ultrasound Machine for Block: No
--- NOTE | 2024-02-05 11:02 | P.NB_ITS ---
Nerve Block Nerve Block Time Seen by Provider: 08:42 Date Seen: 02/05/24 Type of block requested by surgeon for post-operative analgesia: geniculars Side: left Time out performed: Yes Verification of patient name: Yes Verification of date of : Yes Site marking: site marked Name of person performing procedure: Kasal Continuous monitoring Was continuous monitoring of O2 sat, B/P, monitor technician, recorded every 15 minutes?: Yes Procedure Checklist: sterile prep, needles and gloves Ultrasound guided. Images saved: Yes Medications given in 5ml increments after negative aspiration: Marcaine %: 0.25 mL: 9 Needle gauge: 25 Patient tolerated procedure well: Yes Block Charges Block Charge (with Pro Fee): Genicular Nerve Block
[2024-02-05] MEDS: ACETAMINOPHEN 325 MG TABLET PO (14:00)
[2024-02-05] MEDS: IBUPROFEN 200 MG TABLET 400 MG PO (14:00)
[2024-02-05] MEDS: OXYCODONE 5 MG TABLET PO (16:20)
--- NOTE | 2024-02-05 16:52 | SUR.PHASEII ---
Oxycodone given to pt after PT. pt rated pain 7/10. Reviewed medication schedule with pt and sister. All questions were answered. Pt voided. Pt wheelchair out to car with staff and sister.
== END 2024-02-05 16:53 | disposition home or self-care (01) ==
LOC: OR 06:52
PROVIDERS: PCP Family Medicine; Visit Provider Orthopaedic Surgery Sports Medicine
PROC: (CPT 27447; principal; 2024-02-05 09:00)
DX: M17.12 Unilateral primary osteoarthritis, left knee (principal); G89.18 Other acute postprocedural pain
CPT/HCPCS: 27447; 01402; 64447; 64454; 73560; 76942; 97110; 97116; 97161; 97530; 99100; A9270; C1776; J0665; J0690; J2250; J3010; J7120

== ENCOUNTER 2024-02-14 10:50 | Outpatient (CLI) | payer MEDICARE, SELFPAY ==
--- NOTE | 2024-02-14 11:00 | CRLHL7_ITS ---
For Patients: As a result of the Century Cures Act, medical imaging exams and procedure reports are released immediately into your electronic medical record. You may view this report before your referring provider. If you have questions, please contact your health care provider. INDICATION: Post LT TKA swelling COMPARISON: None. TECHNIQUE: A compression venous ultrasound exam was performed of the left lower extremity using henderson-scale imaging, color Doppler and spectral Doppler analysis. FINDINGS: Sonographic imaging of the left lower extremity demonstrates normal compressibility and color Doppler venous blood flow within the common femoral vein, deep femoral vein, and the proximal greater saphenous vein. Within the thigh, the femoral vein is patent and compressible. At a lower level, the posterior tibial veins also show normal compressibility and color Doppler venous blood flow. Limited imaging of the contralateral groin demonstrates a normal spectral waveform and color Doppler venous blood flow within the right common femoral vein. Nonocclusive clot is present within the distal right popliteal vein with incomplete compressibility. Preservation of some flow is present. IMPRESSION: Partial nonocclusive DVT within the distal right popliteal vein. Jose Bob was notified of the results by the worm picker immediately following the examination. Dictated by Ivan Olivas MD @ 02/14/2024 12:05:43 PM (Electronically Signed)
== END 2024-02-14 10:51 | disposition home or self-care (01) ==
LOC: US 10:51
PROVIDERS: PCP Family Medicine; Visit Provider Physician Assistant Surgical
DX: R22.42 Localized swelling, mass and lump, left lower limb (principal); I82.432 Acute embolism and thrombosis of left popliteal vein; Z96.652 Presence of left artificial knee joint
CPT/HCPCS: 93971

== ENCOUNTER 2024-04-02 11:15 | Outpatient (RCR) | payer MEDICARE, SELFPAY ==
--- NOTE | 2024-01-28 14:53 | PT.OPEX ---
PT [facility] Outpatient Eval PT [facility] Outpatient Eval Start: 01/28/24 07:09 Freq: Status: Active Protocol: Document 01/28/24 13:16 YANICK (Rec: 01/28/24 14:53 YANICK [id number]) E-signed By Rush Stiles DPT Physical Therapy Outpatient Evaluation Insurance Information Recert Due Date 04/27/24 Insurance Name Medicare B Medical Diagnosis L Knee OA L TKA 02/05/24 Treating Diagnosis L knee pain muscle weakness Referring MD reagan wade Subjective Subjective Nanci comes into clinic ~ 1 week prior to her L TKA. She was originally planning on having her R knee done however she feels like her L knee is worse overall. FEels like it can go back and forth between which is worse. Did have a R KATHLEEN ~2020 which she thought went well. Will have her sister helping her post operatively. Biggest limitation is standing activity primarily walking. Pain Comments -12/04 Current Work Status Retired Precautions Treatment Precautions/Contraindications htn hx of R KATHLEEN 2020 hx breast cancer arthritis Objective Other/Pertinent Objective GAIT/FUNCTIONAL MOBILITY ambulates with decreased pain and mild antalgic pattern KNEE ROM L 1-118 before pain LE MMT: Hip flexion: R4+ /5 L4+ /5 Hip abduction: R 4/5 L4 /5 knee extension: R 4/5 L 4-/5 Knee Flexion: R 5/5 L5 /5 Dorsiflexion/heel walk: R 5/5 L5/5 Plantarflexion/toe walk:R 5/5 L 5/5 Assessment Assessment/Impression Pt is a 73 yr old female who presents with concerns of L knee pain secondary to OA. Patient also has notable objective findings including limited ROM, impaired gait, decreased strength also likely contributing to the problem. Patient is a good candidate for skilled therapy to target deficits described above. Skilled PT intervention is necessary for use of therapeutic exercise manual therapy, neuromuscular re- education, gait training, and therapeutic activity. Functional impairments include difficulty with: walking standing stairs . See appropriate sections of PT eval for complete list of goals and POC. D/C plan and criteria is for pt to achieve the goals as listed below or until max rehab potential is met. Pt was agreeable with plan of care and goals established. Plan of Care Rehabilitation Potential Good Physical Therapy Goals TKA GOALS STG (within 6 weeks ) 1) Pt will improve knee AROM at least 0 to 90 for improved sit to stand transfers 2) Pt will demonstrate negative extensor lag during straight leg raise exercise with ability to complete at least 15 reps with 5 sec hold to improve strength for ambulation 3) Patient will demonstrate/ report ability to walk for 20 minutes w/SPC with pain level <1/10, to allow for community and household ambulation. LTG: (within 16 weeks) 1) Pt will be indep with HEP for senior care management of pain/symptoms 2) Pt will improve knee AROM at least 0 to 120 for improved sit to stand transfers 3) Patient will ascend/descend at least 6 steps using single rail and reciprocal pattern to improve ease of mobility at home/community 4) Patient will demonstrate/ report ability to walk for 20 minutes w/o AD with pain level <1/10, to allow for community and household ambulation. Coordination/Communication With Referral Source Treatment Plan/Direct Interventions Gait Training,Joint Mobilization,Manual Therapy, Neuromuscular Re-ed,Self-Care/ Home Management,Therapeutic Activities,Therapeutic Exercises Frequency/Duration 1-2 visits a week for 12-16 weeks Patient Will Be Discharged From Therapy Completion of LTG(s), Independent w/HEP, Independently Progressing Evaluation Billing Untimed Code Treatment Minutes 15 Complexity Low Certification Information Initial Certification Date 01/28/24 Ending Certification Date 04/27/24 Provider Signature Required Yes Provider Signature Shows Agreement With POC & Medical Necessity Physician NPI Number Write NPI# Here Physician Comment/Change : Physician Signature & Date Requested Please Sign/Date Here
--- OUTSIDE RECORDS SUMMARY | 2024-02-27 15:38 | XMS_ITS ---
Author Organization [facility] Address [address] [place] [address] Care Team Providers Care Grain Unloader Name Role Phone Unavailable Unavailable Unavailable Surgery Details Not on file Complications Check Surgery Details section. Procedure Estimated Blood Loss Check Surgery Details section. Procedure Findings Check Surgery Details section. Procedure Specimens Taken Check Surgery Details section.
--- OUTSIDE RECORDS SUMMARY | 2024-02-27 15:38 | XMS_ITS | Clinical Summary ---
Author Organization [facility] Address [address] [place] [address] Care Team Providers Care Baggagemaster Name Role Phone Unavailable Primary Care Provider Unavailabl e Source Comments Patient records contain information from all sites at [facility]. For routine questions regarding patient records, call [phone] during business hours, M-F 8:00 AM - 5:00 PM Central Time. 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[employer] Gender Identity Not on file Sexual Orientation Not on file Last Filed Vital Signs Vital Sign Reading Time Taken Comments Blood Pressure 189/97 04/24/2022 2:40 PM [employer]GE [employer] UPP[employer] Pulse 66 04/24/2022 2:40 PM [employer] U[employer] Temperature 36.3 C (97.4 F) 04/24/2022 2:40 PM [employer] UPP[employer] Respiratory Rate - - Oxygen Saturation - - Inhaled Oxygen Concentration - - Weight 61.5 kg (135 lb 9.3 oz) 04/24/2022 2:40 P M [employer]GE [employer]ER UPP[employer] Height - - Body Mass Index - - Plan of Treatment Health Maintenance Due Date Last Done Comments CT Colonography 1950 Colonoscopy 1950 Hepatitis C Screening 1950 Zoster Vaccines (1 of 2) 12/01/2010 10/06/2010 Depression Screening (Annual PHQ-2) 02/26/2024 Fall Risk Screen (Annual) 02/26/2024 Thyroid Stimulating Hormone (TSH) test for thyroid function 08/14/2024 08/15/2023, 07/25/2022, 09/07/2021, Additional history exists Mammogram 01/28/2025 01/29/2024, 05/2023, 01/24/2023, Additional history exists Fasting Glucose for Diabetes Screening 08/14/2026 08/15/2023, 07/25/2022, 09/07/2021, Additional history exists Cologuard 08/27/2026 08/28/2023 Colorectal Cancer Surveillance 08/27/2026 DTaP,Tdap,and Td Vaccines (3 - Td or Tdap) 07/04/2030 07/04/2020, 07/22/2009, 11/21/1998 Pneumococcal vaccine (50+ years) Completed 11/07/2015, 10/26/2014 Bone Density Scan (Osteoporosis Screen) Discontinued 04/20/2022 COVID-19 Vaccine Completed 01/21/2024, , 01/31/2021, Additional history exists Influenza Vaccine Completed 01/21/2024, , 12/27/2021, Additional history exists IPV Vaccines Aged Out No longer eligi ble based on patient's age to complete this topic Procedures Procedure Name Priority Date/Time Associated Diagnosis Comments OUTSIDE MG MAMMOGRAM Routine 03/07/2022 10:50 AM EDGE B[employer]ER UPP[employer] from Last 3 Months or Most Recently Relevant to Health Maintenance Insurance [facility]
--- OUTSIDE RECORDS SUMMARY | 2024-02-27 15:38 | XMS_ITS ---
Author Organization [facility] Address [address] [place] [address] Care Team Providers Care Performance Test Architect Name Role Phone Unavailable Primary Care Provider Unavailabl e Active Problems Problem Noted Date Diagnosed Date Malignant Neoplasm Of Breast Upper Outer Quadrant Female Right 03/16/2022 Malignant Neoplasm Of Overla pping Sites Of Left Female Breast 01/25/2022 Cancer Staging:Pathologic stage from 03/07/2022:Stage IA(pT1c, pN1a(sn), cM0, G2, ER+, SD+, HER2-) - Unsigned Current Oncology Plans No current plan information found. Past Plans No past plan information found. Radiation Treatments * Plan Last Treated On Elapsed Days Fractions Treated Prescribed Fraction Dose Prescribed Total Dose [id number] 04/27/2022 4 5 of 5 520 cGy 2,600 cGy Reference Point Last Treated On Elapsed Days Session Dose Total Dose [id number] 04/27/2022 4 520 cGy 2,600 cGy
--- OUTSIDE RECORDS SUMMARY | 2024-02-27 15:38 | XMS_ITS | Clinical Summary ---
Author Organization [facility] Address [place], [place] [address] Care Team Providers Care Head Of Science Name Role Phone Gretchen Farias MD Primary [...] once daily. 100 Tablet 3 4 Active apixaban (ELIQUIS) 5 mg tabletIndicatio ns:Acute deep vein thrombosis (DVT) of popliteal vein of right lower extremity (HC) Take 1 Tablet (5 mg) by mouth two times daily for 7 days. 14 Tablet 4 025 Active apixaban (ELIQUIS) 5 mg tabletIndicatio ns:Acute deep vein thrombosis (DVT) of popliteal vein of right lower extremity (HC) Take 1 Tablet (5 mg) by mouth two times daily. 152 Tablet 5 025 Active Active Problems Problem Noted Date Diagnosed Date History of infiltrating ductal carcinoma of ag[address] st 07/25/2022 Overview (07/25/2022): Right. 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, estrogen receptor positive 01/25/2022 Cancer Staging:Clinical:Stage IA(cT1c, cN0, cM0, G1, ER+, LA+, HER2-) - Signed by Juliana Mcknight MD on 01/25/2022 Pathologic:Stage IA(pT1c, pN1, cM0, G2, ER+, LA+, HER2-) - Signed by Juliana Mcknight MD [...] Encounters Date Type Department Care Team Description 02/20/2024 8:20 AM DOCK CLERK [facility] [address] [facility] [address] Gretchen Farias MD Medication Management (Refill blood thinner) 02/20/2024 Telephone [facility] [address] [facility] [address] Gretchen Farias MD Refill Request (APIXABAN) 02/19/2024 Travel 02/14/2024 Orders Only [facility] Scanner 1 scan: (1-Ord) [facility], US VENOUS LE LT, 02/14/2024 02/05/2024 Orders Only [facility] Scanner 1 scan: (1-Ord) [facility], KNEE LT 2 VIEW, 02/05/2024 01/29/2024 2:30 PM DOCK CLERK Office Visit [facility] [address] [place] [address] Delfina Bernal PA Follow Up (History of breast cancer ) 01/29/2024 1:20 PM DOCK CLERK - 01/29/2024 11:59 PM DOCK CLERK Hospital Encounter [facility] [address] [place] [address] Encounter for screening mammogram for malignant neoplasm of breast; Personal history of malignant neoplasm of breast 01/29/2024 Travel 01/21/2024 12:15 PM DOCK CLERK Nurse/Clinic Staff Only [facility] [address] [facility] [place] [address] Immunization/Injectio n 01/21/2024 11:20 AM DOCK CLERK Nurse/Clinic Staff [facility] [address] [facility] [place] [address] Blood Pressure 01/21/2024 Telephone [facility] [address] [facility] [place] [address] Alonzo Dinero MD 01/20/2024 Travel 01/20/2024 Orders Only [facility] [address] [facility] [place] [address] Alonzo Dinero MD 1 scan: (1-Ord) NFLD-EKG-01/17/24 01/17/2024 10:45 AM DOCK CLERK [facility] [address] [place] [address] Alonzo Dinero MD Preoperative Exam (RIGHT Total Knee Replacement DOS: 02/05/2024/[facility]/Dr Willard ) 01/16/2024 Travel from Last [...] Maternal Aunt Heart Disease Maternal Grandmother Fatal [place] at age 69 or 70 Cancer-ovarian Mother [...] oz pur e alcohol) occasional - rare C Utilities Answer Date Recorded Do you have trouble paying f or utilities (for example, heat, electricity, water, phone)? Yes 08/15/2023 PHQ-2 Answer Date Recorded PHQ-2 TOTAL SCORE [...] on file Legal Sex Female 5:25 AM DOCK CLERK Gender Identity Not on file Sexual Orientation Not on file Obstetrics History Para Term AB IAB SAB Ectopic Multiple Livin g Live Births 3 3 3 Date Outcome GA Total Labor Labor/2nd/3rd Weight Sex Type Anes PTL Mandy A1 A5 Name Clin Para Para Para Last Filed Vital Signs Vital Sign Reading Time Taken Comments Blood Pressure 151/94 02/20/2024 8:23 AM DOCK CLERK Pulse 92 02/20/2024 8:23 AM DOCK CLERK Temperature 36.3 C (97.3 F) 01/29/2024 1:52 PM DOCK CLERK Respiratory Rate 18 01/29/2024 1:52 PM DOCK CLERK Oxygen Saturation 100% 02/20/2024 8:23 AM DOCK CLERK Inhaled Oxygen Concentration - - Weight 62.7 kg (138 lb 3.2 oz) 02/20/2024 8:23 A M DOCK CLERK Height 160 cm (5' 3) 01/29/2024 1:52 PM DOCK CLERK Body Mass Index 24.48 01/29/2024 1:52 PM DOCK CLERK Plan of Treatment Health Maintenance Due Date Last Done Comments RSV vaccine for adults or (1 - Risk 60-74 years 1-dose series) 2009 Zoster (shingles) series for age 50+ (1 of 2) 12/01/2010 10/06/2010 Medicare Wellness for age 65+ 01/03/2019, 11/07/2015, 10/26/2014 COVID-19 vaccine series ( season) 2024 01/21/2024, 02/12/2023, 01/31/2021, Additional history exists Depression screening for age 12+ 08/14/2024 08/15/2023, 07/25/2022, 12/09/2020, Additional history exists BMI (ht and wt on same day) for age 18+ 01/28/2025 01/29/2024, 01/17/2024, 01/24/2023, Additional history exists Mammogram for age 45-75 01/28/2025 01/29/20 24, 01/24/2023, 01/16/2022, Additional history exists Fecal testing sDNA-FIT ([place] guard) for age 45-75 08/21/2026 08/22/2023 Lipids for age 45-75 07/26/2027 07/25/2022, 09/07/2021, 12/09/2020, Additional history exists Tetanus booster 07/04/2030 07/04/2020, 06/26, 11/21/1998, Additional history exists Hepatitis C screening for ag e 18-79 Completed 11/07/2015 Pneumococcal series for age 50+ Completed 6, 10/26/2014 Tdap Completed 07/04/2020, 07/22/2009 DEXA/DXA scan for age 65+ Completed 04/20/2022, 02/2014 Influenza for age 65+ Completed 01/21/2024 , 12/05/2022, 12/27/2021, Additional history exists Procedures Procedure Name Priority Date/Time Associated Diagnosis Comments SCAN-ULTRASOUND REPORT 02/14/2024 12:00 AM DOCK CLERK SCAN-RADIOLOGY REPORT 02/05/2024 12:00 AM DOCK CLERK XR MAMMO NATHALIE BILAT SCREEN Routine 01/29/2024 1:40 PM DOCK CLERK Encounter for screening mammogram for malignant neoplasm of breast Personal history of malignant neoplasm of breast EKG 12 LEAD Routine 01/20/2024 8:36 AM DOCK CLERK Pre-op examination LA READING EKG - NO CHARGE, COMP ONLY Routine 01/20/2024 8:35 AM DOCK CLERK Pre-op examination POTASSIUM Routine 01/17/2024 11:51 AM DOCK CLERK Pre-op examination HEMOGLOBIN Routine 01/17/2024 11:51 AM DOCK CLERK Pre-op examination SDNA-FIT EXTERNAL (COLOGUARD) Routine 08/22/2023 9:15 AM CDT Screening for colon cancer LIPID PANEL Routine 07/25/2022 2:20 PM CDT Lipid screening XR DXA BONE DENSITY 2 SITES AXIAL Routine 04/20/2022 12:00 AM DOCK CLERK Osteopenia, unspecified location Asymptomatic menopausal state ANTI HCV Routine 11/07/2015 9:04 AM CDT Need for hepatitis C screening test from Last 3 Months or Most Recently Relevant to Health Maintenance Results * SCAN-ULTRASOUND REPORT (02/14/2024 12:00 AM DOCK CLERK) Anatomical Region Laterality Modality Other us Scanner OTHER Final Result * SCAN-RADIOLOGY REPORT (02/05/2024 12:00 AM DOCK CLERK) Anatomical Region Laterality Modality Other us Scanner OTHER Final Result * XR MAMMO NATHALIE BILAT SCREEN (01/29/2024 1:40 PM DOCK CLERK) Anatomical Region Laterality Modality BREASTS, Breast Left, Breast Right Bilateral Mammography Impressions 01/29/2024 2:37 PM DOCK CLERK There is no radiographic evidence for malignancy. Recommend annual mammograms. MAMMOGRAM ASSESSMENT: ACR 2 Benign PATIENTS: You will also receive a letter with your examination results in an easy to read format. If you have questions about your results, please contact your referring provider. Narrative 01/29/2024 2:37 PM DOCK CLERK For Patients: As a result of the Century Cures Act, medical imaging exams and procedure reports are released immediately into your electronic medical record. You may view this report before your referring provider. If you have questions, please contact your health care provider. XR MAMMO NATHALIE BILAT SCREEN [[id number]] CLINICAL HISTORY: This is an asymptomatic 73 y.o. patient. INDICATION FOR EXAM: Mammogram Screening. TECHNIQUE: CC & MLO views were obtained. This study was evaluated with the assistance of Computer-Aided Detection. Breast Tomosynthesis was used in interpretation. COMPARISON FILMS: Yes 01/24/23 [facility] 01/09/22 [facility] FINDINGS: There are scattered areas of fibroglandular density. No suspicious masses or microcalcifications. There are post treatment changes of both breasts. Gretchen Farias MD MAMMO Final Resul t * EKG 12 LEAD (01/20/2024 8:36 AM DOCK CLERK) Alonzo Dinero MD EKG ORD Final Res ult * LA READING EKG - NO CHARGE, COMP ONLY (01/20/2024 8:35 AM DOCK CLERK) Alonzo Dinero MD PB - PROVIDER READINGS Fi nal Result * HEMOGLOBIN (01/17/2024 11:51 AM DOCK CLERK) HEMOGLOBIN 13.9 11.7 - 15.5 g/dL [facility] Blood BLOOD SPECIMEN / Unknown 01/17/2024 11:51 AM DOCK CLERK 01/17/2024 11:52 AM DOCK CLERK us Alonzo Dinero MD HEMATOLOGY Final Res ult [facility] [address] [place] [address], [place] [phone] [facility] [address] [place] [address] * POTASSIUM (01/17/2024 11:51 AM DOCK CLERK) POTASSIUM 4.4 3.5 - 5.3 mmol/L [facility] Blood BLOOD SPECIMEN / Unknown 01/17/2024 11:51 AM DOCK CLERK 01/17/2024 11:52 AM DOCK CLERK us Alonzo Dinero MD CHEMISTRY Final Res ult Performing Organization Address City/[facility]/ZIP Co de Phone Number [facility] [address] [place] [address], [place] [phone] [facility] [address] [place] [phone] * SDNA-FIT EXTERNAL (COLOGUARD) (08/22/2023 9:15 AM CDT) NONINV COLON CA DNA+OCC BLD SCRN STL-IMP Negative Negative 08/28/2023 12:30 PM CDT [facility] (CLIA #:[id number]) Comment: NEGATIVE TEST RESULT. A negative Cologuard [...] (Alvin Walker al, N Engl J Med 2014;370(14):0322-8413) The normal value (reference range) for this assay is negative. COLOGUARD RE-SCREENING RECOMMENDATION: Periodic colorectal cancer screening is an important part of preventive healthcare for asymptomatic individuals at average risk for colorectal cancer. Following a negative Cologuard result, the [place] Cancer Society and U.S. Multi-Society Task Force screening guidelines recommend a Cologuard re-screening interval of 3 years. References: [place] [employer] Guideline for Colorectal Cancer Screening: https://www.cancer.org/cancer/yubkw-hjqmmy-jxlfse/oalokpmsn-ltnhjwneu-idannvw/ac s-rec ommendations.html.; Linus DK, Fransisco BROWN, Orlin EstradaK, Colorectal Cancer Screening: Recommendations for Physicians and Patients from the U.S. Multi-Society Task Force on Colorectal Cancer Screening , Am J Gastroenterology 2017; 112:2983-5539. TEST DESCRIPTION: Composite algorithmic analysis of stool [...] colonoscopy. (Alvin Ribeiro, N Engl J Med 2014;370(14):3248-5017.) Cologuard may produce a false negative or false positive result (no colorectal cancer or precancerous polyp present at colonoscopy follow up). A negative Cologuard test result does not guarantee the absence of CRC or advanced adenoma (pre-cancer). The current Cologuard screening interval is every 3 years. ([place] Cancer Society and U.S. Multi-Society Task Force). Cologuard performance data in a 10,000 patient pivotal study using colonoscopy as the reference method can be accessed at the following location: www.[employer]/results. Additional description of the Cologuard test process, warnings and precautions can be found at www.[employer]ulurd.com. Stool specimen (specimen) (Rectum) 08/22/2023 9:15 AM CDT 08/23/2023 9:54 AM CDT us Gretchen Farias MD URINE Final Resul t [facility] (CLIA #:[id number]) [place] [address], * LIPID PANEL (07/25/2022 2:20 PM CDT) CHOLESTEROL,TOTAL 186 100 - 199 mg/dL 07/26/2022 1:36 AM CDT [facility] Comment: Cholesterol, Total Reference Ranges Desirable <200 mg/dL Borderline 200-239 mg/dL High >=240 mg/dL TRIGLYCERIDES 87 <150 mg/dL 07/26/2022 1:36 AM CDT [facility] HDL CHOLESTEROL 84 >40 mg/dL 1:36 AM CDT [facility] NON-HDL CHOLESTEROL 102 <145 mg/dl 07/26/2022 1:36 AM CDT [facility] CHOL/HDL RATIO 2.21 <4.50 07/26/2022 1:36 AM CDT [facility] LDL CHOLESTEROL 85 <=130 mg/dL 07/26/2022 1:36 AM CDT [facility] VLDL CHOLESTEROL 17 <=30 mg/dL 07/26/2022 1:36 AM CDT [facility] PROVIDER ORDERED STATUS RANDOM 07/26/2022 1:36 AM CDT [facility] Blood BLOOD SPECIMEN / Unknown Venipuncture / Unknown 07/25/2022 2:20 PM CDT 07/25/2022 2:23 PM CDT us Gretchen Farias MD CHEMISTRY Final Resul t [facility] [address] [place] [address], [place] * XR DXA BONE DENSITY 2 SITES AXIAL (04/20/2022 12:00 AM DOCK CLERK) Anatomical Region Laterality Modality Spine, HIPS, HIPL, HIPR Other Gretchen Farias MD DEXA Final Resul t * ANTI HCV [[id number]] (11/07/2015 9:04 AM CDT) HEPATITIS C ANTIBODY Non-Reacti ve Non-Reacti ve 11/07/2015 6:01 PM CDT [facility] Blood BLOOD SPECIMEN / Unknown Venipuncture / Unknown 11/07/2015 9:04 AM CDT 11/07/2015 9:04 AM CDT Narrative [facility] - 11/07/2015 6:01 PM CDT Antibodies to HCV not detected; does not exclude the possibility of exposure to HCV. Aleksandra Sosa MD SEND OUTS Fi nal Result [facility] [address] [place] [address], [place] from Last 3 Months or Most Recently Relevant to Health Maintenance Insurance MEDICARE PART A HB ONLY [employer]AGE Advance Directives * Full Code (Latest Code Status on File) Date Activated Date Inactivated Comments 03/07/2022 11:01 AM 03/07/2022 8:25 PM Question Answer Comments Code Status Discussion: Unable to Assess Preferences, Provider to review later Care Teams Head Of Science Relationship Specialty Start Date End Date Gretchen Farias MD [address] [place] [address] PCP - General Family Practice 10/11/21 Juliana Mcknight MD [address] [place] [address] Surgery - General 01/24/22
--- OUTSIDE RECORDS SUMMARY | 2024-02-27 15:38 | XMS_ITS | Referral Summary ---
Author Organization [facility] Address [address] [place] [address] Care Team Providers Care Applications Development Consultant Name Role Phone Unavailable Primary Care Provider Unavailabl e Source Comments Patient records contain information from all sites at [facility]. For routine questions regarding patient records, call [phone] during business hours, M-F 8:00 AM - 5:00 PM Central Time. Record requests for emergency care only can be directed to [phone] at any time.[facility] Allergies No known active allergies Medications [...] from 03/07/2022:Stage IA(pT1c, pN1a(sn), cM0, G2, ER+, [place]+, HER2-) - Unsigned Social History Tobacco Use [...] on file Legal Sex Female 8:20 AM FINANCIAL ACCOUNTING ANALYST Gender Identity Not on file Sexual Orientation Not on file Last Filed Vital Signs Vital Sign Reading Time Taken Comments Blood Pressure 189/97 04/24/2022 2:40 PM FINANCIAL ACCOUNTING ANALYST Pulse 66 04/24/2022 2:40 PM FINANCIAL ACCOUNTING ANALYST Temperature 36.3 C (97.4 F) 04/24/2022 2:40 PM FINANCIAL ACCOUNTING ANALYST Respiratory Rate - - Oxygen Saturation - - Inhaled Oxygen Concentration - - Weight 61.5 kg (135 lb 9.3 oz) 04/24/2022 2:40 P M FINANCIAL ACCOUNTING ANALYST Height - - Body Mass Index - - Plan of Treatment Not on file Procedures Procedure Name Priority Date/Time Associated Diagnosis Comments OUTSIDE MG MAMMOGRAM Routine 03/07/2022 10:50 AM FINANCIAL ACCOUNTING ANALYST from Last 3 Months or Most Recently Relevant to Health Maintenance Insurance [facility]
== END 2024-04-30 09:34 | disposition home or self-care (01) ==
PROVIDERS: PCP Family Medicine; Visit Provider Orthopaedic Surgery Sports Medicine
DX: M17.11 Unilateral primary osteoarthritis, right knee (principal); Z96.652 Presence of left artificial knee joint; M25.562 Pain in left knee; M62.81 Muscle weakness (generalized); M25.662 Stiffness of left knee, not elsewhere classified; Z96.651 Presence of right artificial knee joint; Z51.89 Encounter for other specified aftercare
CPT/HCPCS: 97110; 97112; 97116; 97140; 97161; 97164; J0690; J1100; J2371; J2405; J2704; J3490